=== PATIENT | male | born 1995 | race Caucasian/White ===

== ENCOUNTER 2017-09-07 21:13 | Emergency (ER) | payer OTHER ==
[~2017-09-07] VITALS: Ht 182.9 cm; Wt 129.3 kg
[2017-09-07 21:17] VITALS: BP 123/75
--- NOTE | 2017-09-07 21:29 | NUR ---
PT TAKEN TO CHAIR A. RN ASSESSING PT
--- NOTE | 2017-09-07 21:30 | NUR ---
21Y M BIB [facility] C/O ABSCESS TO THE EXTERIOR NOSE. PT STATES HE NOTICED ABSCESS X 3 DAYS NOW, WORSENING AND MORE PAIN WITH EACH DAY. PT STATES NOSE IS TENDER TO TOUCH. PT ALSO STATES IT WAS NOT A SCRATCH OR PIMPLE NOR DID HE TRY TO EXTRACT ITS CONTENT. PT STATES PAIN IS 7/10. NO MED HX, OR ALLERGIES. PT LAST TETANUS IS UNKNOWN.
--- NOTE | 2017-09-07 22:41 | NUR ---
Dr. Narvaez evaluating patient.
--- NOTE | 2017-09-07 23:14 | NUR ---
Patient discharged with v/s stable. Written and verbal after care instructions given and explained. Patient alert, oriented and verbalized understanding of instructions. Ambulatory with steady gait. All questions addressed prior to discharge. ID band removed. Patient advised to follow up with PMD. Rx of KEFLEX 500MG given. Patient educated on indication of medication including possible reaction and side effects. Opportunity to ask questions provided and answered.
[2017-09-07 23:15] VITALS: BP 119/69
== END 2017-09-07 23:14 | disposition home or self-care (01) ==
LOC: MED 21:13
DX: J34.0 Abscess, furuncle and carbuncle of nose (principal)
CPT/HCPCS: 99283

== ENCOUNTER 2018-08-15 18:43 | Emergency (ER) | payer OTHER ==
[~2018-08-15] VITALS: Ht 182.9 cm; Wt 132.2 kg
[2018-08-15 18:46] VITALS: BP 140/82
--- NOTE | 2018-08-15 19:01 | NUR ---
22 yo m bib self w/ c/o left great toe pain x today after a block of wood on his toe at work. ecchymosis noted to the left great toe and 2nd toe. cms intact. ambulatory w/ steady gait. aao x 4, gcs 15. rr even and unlabored, lungs bl clear. abd soft, non-tender. er md notified of pt status, pt needs met. safety precautions in place. will continue to monitor.
--- NOTE | 2018-08-15 19:07 | NUR ---
REPORT GIVEN TO JIMMIE KOWALSKI FOR TRANSFER OF CARE AT THIS TIME.
--- NOTE | 2018-08-15 19:15 | NUR ---
RECEIVED REPORT FROM AM NURSE. FAMILY/FRIEND AT BEDSIDE. PT LAYING IN BED, RR EVEN AND UNLABORED. ALL NEEDS MET
[2018-08-15] MEDS ORDERED: KETOROLAC 30 MG/ML VIAL IM ONE (19:45)
--- NOTE | 2018-08-15 20:00 | NUR ---
KIMBERLY CAMACHO AT BEDSIDE. PT STATED THAT HE DOES NOT WANT TO GO THROUGH [employer]. PT REPORTS RELIEF IN PAIN.
[2018-08-15 20:10] VITALS: BP 146/94
--- NOTE | 2018-08-15 20:10 | NUR ---
Patient discharged with v/s stable. Written and verbal after care instructions given and explained. Patient alert, oriented and verbalized understanding of instructions. Ambulatory with steady gait. All questions addressed prior to discharge. ID band removed. Patient advised to follow up with PMD. Rx of IBUPROFEN, TYLENOL given. Patient educated on indication of medication including possible reaction and side effects. Opportunity to ask questions provided and answered.
== END 2018-08-15 20:10 | disposition home or self-care (01) ==
LOC: MED 18:43
DX: S90.112A Contusion of left great toe without damage to nail, initial encounter (principal); W20.1XXA Struck by object due to collapse of building, initial encounter; Y93.89 Activity, other specified; Y92.89 Other specified places as the place of occurrence of the external cause; Y99.8 Other external cause status
CPT/HCPCS: 29515; 73660; 96372; 99283; J1885; Q0092